=== PATIENT | female | born 1945 | race Caucasian/White ===

== ENCOUNTER 2020-10-26 14:32 | Outpatient (CLI) | payer BC ==
[~2020-10-26] VITALS: Ht 157.5 cm; Wt 122.5 kg
[2020-10-26] MEDS ORDERED: albuterol 2.5 MG/3 ML nebule NEB PRN (15:15)
== END 2020-10-26 23:59 | disposition home or self-care (01) ==
LOC: RT 14:32
PROVIDERS: ATTEND Internal Medicine
DX: R06.02 Shortness of breath (principal)
CPT/HCPCS: 94060; 94760